=== PATIENT | male | born 1990 | race American Indian/Alaskan Native ===

== ENCOUNTER 2021-02-19 12:50 | Emergency (ER) | payer MEDICAID, SELFPAY ==
[2021-02-19 13:10] VITALS: BP 142/91; PULSE 85; RESP 15; TEMP 36.2; O2SAT 98; BMI 34.7
[2021-02-19 14:11] LABS: COVID19 -Nasal RAPID Negative (Negative)
[2021-02-19 17:38] VITALS: BP 142/85; PULSE 83; TEMP 37; O2SAT 98
--- NOTE | 2021-02-19 17:39 | ED_ITS ---
HPI - URI/Sore Throat General Chief Complaint: Upper Respiratory Symptoms Stated Complaint: COVID SYMPTOMS Time Seen by Provider: 02/19/21 17:33 Source: patient Mode of arrival: Ambulatory Limitations: no limitations History of Present Illness HPI Narrative: Patient is a 30-year-old male Fully COVID vaccinated with sore throat and headache. He states he actually feels like he might is have a sinus infection. It started yesterday. He is complaining of pain rate between his eyes. No fever chills no cough no shortness of breath. Mild sore throat. Related Data Allergies Allergy/AdvReac Type Severity Reaction Status Date / Time No Known Drug Allergies Allergy Verified 02/19/21 13:10 Review of Systems Constitutional Constitutional: Denies chills, Denies fatigue, Denies fever(s), Denies frequent falls, Denies lethargy and Denies weakness Eyes Eyes: Denies change in vision, Denies eye discharge, Denies irritation and Denies loss of vision ENT Ears, Nose, Mouth, and Throat: Denies change in voice, Denies dizziness, Denies neck pain, Reports sinus pressure, Reports sore throat and Denies throat swelling Cardiovascular Cardiovascular: Denies chest pain, Denies irregular heart rhythm, Denies lightheadedness, Denies palpitations, Denies dyspnea, Denies dyspnea on exertion and Denies orthopnea Respiratory Respiratory: Denies cough, Denies dyspnea, Denies dyspnea on exertion and Denies wheezing Gastrointestinal Gastrointestinal: Denies abdominal pain, Denies change in bowel habits, Denies diarrhea, Denies nausea and Denies vomiting Musculoskeletal Musculoskeletal: Denies neck pain and Denies numbness Integumentary/Breasts Skin/Breast: Denies pruritus, Denies erythema, Denies rash and Denies wounds Neurologic Neurologic: Denies dizziness, Denies frequent falls, Denies loss of vision, Denies numbness and Denies weakness Endocrine Endocrine: Denies fatigue, Denies flushing and Denies palpitations Hematologic/Lymphatic Hematologic/Lymphatic: Denies easy bruising Allergic/Immunologic Allergic/Immunologic: Denies urticaria, Denies throat swelling and Denies wheezing Patient History Social History Smoking Status: Unknown if ever smoked Smoking Status: Unknown if ever smoked alcohol intake frequency: holidays/special occasions only Substance Use Type: does not use Exam Initial Vital Signs Initial Vital Signs: Vital Signs Temperature 97.2 F L 02/19/21 13:10 Pulse Rate 85 02/19/21 13:10 Respiratory Rate 15 02/19/21 13:10 Blood Pressure 142/91 H 02/19/21 13:10 Pulse Oximetry 98 02/19/21 13:10 GENERAL: Alert well-appearing 30-year-old and in no acute distress. HEENT: Head atraumatic, mild frontal tenderness EOMI, pupils reactive, face symmetric, moist mucous membranes , neck supple no minute PHARYNX: No erythema no tonsillar exudate no uvula swelling no airway compromise CARDIOVASCULAR: Regular rate and rhythm without murmurs, rubs or gallops. RESPIRATORY: Breath sounds equal bilaterally, no wheezes rales or rhonchi. ABDOMEN: Soft, nontender. Normoactive bowel sounds all 4 quadrants. No guardin g or rebound. EXTREMITIES: Normal range of motion, no clubbing or edema. Neurovascularly intact NEUROLOGICAL: Alert and oriented x4.Normal gait and speech SKIN: Warm, dry, no laceration, no petechiae, no rashes or lesions. Course Orders Ordered: ED Orders 02/19/21 13:13 COVID19 -Nasal swab/Pre-Proc Stat Vital Signs Vital signs: Vital Signs - 8 hr 02/19/21 13:10 02/19/21 17:38 Temperature 97.2 F L 98.6 F Pulse Rate 85 83 Respiratory Rate 15 Blood Pressure 142/91 H 142/85 H Pulse Oximetry 98 98 MDM - URI/Sore Throat Lab Data Labs: Lab Results 02/19/21 Range/Units 13:13 SARS-CoV-2 (PCR) Negative (Negative) [facility] Narrative Medical decision making narrative: Patient overall appears well. COVID is negative. Probably upper respiratory viral infection. Discharge Plan Departure Patient Disposition: Home Clinical Impression: Upper respiratory infection Instructions: DI for Viral Upper Respiratory Infection -- Adult Activity Restrictions/Additional Instructions: *You have been diagnosed with upper respiratory infection *What to do: At this time COVID is negative. Probably another respiratory virus. Continue hydration and pain and fever control with Tylenol and *Continue to take medications as directed *Follow up with your primary care provider in 2-3 days *Return to ER if you should have increasing pain, symptoms ongoing for more than 10 days, fever more than 100.4 or any new, worsening or concerning symptoms
== END 2021-02-19 17:49 | disposition home or self-care (01) ==
PROVIDERS: Emergency Provider Emergency Medicine
DX: J06.9 Acute upper respiratory infection, unspecified (principal)
CPT/HCPCS: 87635; 99281; 99282; C9803

== ENCOUNTER 2021-06-24 23:42 | Emergency (ER) | payer MEDICAID, OTHER, SELFPAY ==
[2021-06-24 23:54] VITALS: BP 154/80; PULSE 92; RESP 18; TEMP 36.8; O2SAT 96; BMI 36.1
[2021-06-25 00:06] LABS: COVID19 -Nasal RAPID POSITIVE (Negative)
--- NOTE | 2021-06-25 00:15 | ED_ITS ---
HPI - URI/Sore Throat General Chief Complaint: Upper Respiratory Symptoms Stated Complaint: cough/lost taste/smell x3 days Time Seen by Provider: 06/25/21 00:04 Source: patient Mode of arrival: Ambulatory History of Present Illness HPI Narrative: Patient is a 30-year-old male who presents with cough body aches loss of taste smell of concern for COVID. He is fully vaccinated. No other complaints. Symptoms started 2 days ago. Related Data Allergies Allergy/AdvReac Type Severity Reaction Status Date / Time No Known Drug Allergies Allergy Verified 02/19/21 13:10 Review of Systems Review of Systems Narrative: GENERAL: + body aches, see HPI HEENT: Denies sinus pain, ear pain, sore throat, difficulty swallowing, neck pain RESPIRATORY: Denies dyspnea, cough, wheezing, hemoptysis, sputum. CARDIOVASCULAR: Denies chest pain, palpitations, orthopnea, edema GASTROINTESTINAL: Denies nausea, vomiting, abdominal pain, diarrhea, constipation, melena. : Denies dysuria, frequency, incontinence, hematuria, urinary retention, flank pain. MUSCULOSKELETAL: Denies weakness, joint pain, or bony pain SKIN: No rash, no erythema, no pruritus NEUROLOGIC: Denies weakness, dizziness, headache, numbness, change in speech, confusion PSYCHIATRIC: No concerning psychosocial issues. 12 point review of systems is negative except for those stated above and HPI Patient History Social History Smoking Status: Unknown if ever smoked Smoking Status: Unknown if ever smoked alcohol intake frequency: holidays/special occasions only Substance Use Type: does not use Exam Initial Vital Signs Initial Vital Signs: Vital Signs Temperature 98.3 F 06/24/21 23:54 Pulse Rate 92 H 06/24/21 23:54 Respiratory Rate 18 06/24/21 23:54 Blood Pressure 154/80 H 06/24/21 23:54 Pulse Oximetry 96 06/24/21 23:54 Course Orders Ordered: ED Orders 06/24/21 23:53 COVID19 -Nasal swab/Pre-Proc Stat Vital Signs Vital signs: Vital Signs - 8 hr 06/24/21 23:54 Temperature 98.3 F Pulse Rate 92 H Respiratory Rate 18 Blood Pressure 154/80 H Pulse Oximetry 96 MDM - URI/Sore Throat Lab Data Labs: Lab Results 06/24/21 Range/Units 23:53 SARS-CoV-2 (PCR) Positive H (Negative) Discharge Plan Departure Patient Disposition: Home Clinical Impression: COVID-19 Instructions: DI for COVID-19 (Suspected or Confirmed ) Activity Restrictions/Additional Instructions: * if you have not yet been vaccinated is still recommended and encouraged that you do so once your infection has passed At home: -Monitor oxygen with pulse oximeter. If less than 90% for more than 1 hour please return to emergency department -I recommend lying on stomach for side rather than back, it has been proven to increase oxygen levels -Wash hands frequently. -Stay isolated at home please follow the isolation instructions below. -Increase fluid intake. -you may take Tylenol as directed if needed for pain or fever Emergency warning signs for COVID-19: - Difficulty breathing or shortness of breath, oxygen less than 90% - Persistent pain or pressure in the chest - New confusion or inability to arouse - Bluish lips or face CDC Guidelines for home isolation: - Stay away from others - Limit contact with pets and animals: If you must care for a pet, wash your hands before and after interacting with them - Wear a mask while in public all places - Cover your mouth and nose with a tissue when you cough or sneeze. Dispose of tissues in a lined trash can and wash your hands immediately with soap and water for at least 20 seconds. If soap and water are not available, clean hands with alcohol-based hand wool hat forming machine tender that contains at least 60% alcohol. - Clean your hands often with soap and water for at least 20 seconds - Avoid touching your eyes, nose and mouth with unwashed hands - Do not share dishes, drinking glasses, cups, eating utensils, towels, or bedding with other people in your home. After using these items, wash them thoroughly with soap and water or put in the building manager. - Clean high-touch surfaces in your isolation area (?sick room? and bathroom) every day; let a caregiver clean and disinfect high-touch surfaces in other areas of the home. Clean the area or item with soap and water or another detergent if it is dirty. Then, use a household disinfectant.
== END 2021-06-25 00:20 | disposition home or self-care (01) ==
PROVIDERS: Emergency Provider Emergency Medicine
DX: U07.1 COVID-19 (principal)
CPT/HCPCS: 87635; 99281; 99282; C9803

== ENCOUNTER 2021-12-21 07:02 | Emergency (ER) | payer MEDICAID, OTHER, SELFPAY ==
[2021-12-21 07:24] VITALS: BP 145/83; PULSE 98; RESP 18; TEMP 37.1; O2SAT 98; BMI 35.4
--- NOTE | 2021-12-21 07:30 | ED.URI ---
HPI - URI/Sore Throat General Chief Complaint: Upper Respiratory Symptoms Stated Complaint: cough congestion Time Seen by Provider: 12/21/21 07:29 Source: patient and family Mode of arrival: Ambulatory Limitations: no limitations History of Present Illness HPI Narrative: The patient has been ill for 4 days with rhinorrhea, ear pressure, sore throat. He is nonproductive cough, more prevent in the morning that throughout the day. He was positive for COVID-19 last year. He has no chronic sinus problems. He has no asthma or allergies. He is a nonsmoker. He has not been exposed to others with similar complaints. With the sore throat he has no difficulty swallowing. He is hydrating well. He is not having GI upset, his appetite is normal. He had asthma as a child, no issues in recent years. He is on no regular prescribed medications. Related Data Allergies Allergy/AdvReac Type Severity Reaction Status Date / Time No Known Drug Allergies Allergy Verified 02/19/21 13:10 Review of Systems Constitutional Constitutional: Reports body ache(s), Denies chills, Reports fatigue, Denies fever(s), Reports headache(s) and Denies night sweats Eyes Eyes: Denies blurry vision and Denies change in vision ENT Ears, Nose, Mouth, and Throat: Denies vertigo, Denies dizziness, Reports headache(s), Denies sinus pain, Denies sinus pressure and Denies sore throat Cardiovascular Cardiovascular: Denies chest pain, Denies syncope, Denies rapid heart rate, Denies pedal edema and Denies dyspnea Respiratory Respiratory: Denies chest congestion, Denies cough and Denies dyspnea Gastrointestinal Gastrointestinal: Denies abdominal pain, Denies change in stool character, Denies nausea and Denies vomiting Genitourinary Genitourinary: Denies dysuria Musculoskeletal Musculoskeletal: Reports arthralgias, Denies back pain and Reports myalgias Integumentary/Breasts Skin/Breast: Denies rash Neurologic Neurologic: Denies confusion, Denies vertigo, Denies dizziness, Denies syncope and Reports headache(s) Psychiatric Psychiatric: Denies confusion Endocrine Endocrine: Reports fatigue Hematologic/Lymphatic On Anticoagulants: No Patient History Medical History (Updated 12/21/21 @ 08:33 by Felipe Neves MD) No significant past medical history Surgical History (Updated 12/21/21 @ 08:33 by Felipe Neves MD) No significant past surgical history Social History Smoking Status: Unknown if ever smoked Smoking Status: Never smoker alcohol intake frequency: holidays/special occasions only Substance Use Type: does not use Exam Initial Vital Signs Initial Vital Signs: Vital Signs Temperature 98.7 F 12/21/21 07:24 Pulse Rate 98 H 12/21/21 07:24 Respiratory Rate 18 12/21/21 07:24 Blood Pressure 145/83 H 12/21/21 07:24 Pulse Oximetry 98 12/21/21 07:24 Const General: cooperative, comfortable, well developed and well groomed HENMT Head: normal to inspection, normocephalic and atraumatic Ears: TM's normal bilaterally Nose: nasal discharge Face and sinus: sinuses nontender Mouth: other (Or pharyngeal erythema. Postnasal drainage. Tonsils are normal.) Throat: posterior oropharynx normal Eyes Pupils: PERRL EOM: EOM intact bilaterally Neck Neck: normal visual inspection, full ROM and No tender Resp Auscultation: clear to auscultation bilaterally Cardio Rate: regular rate Rhythm: regular rhythm Heart Sounds: S1 normal, S2 normal, no click, no gallops and no murmurs GI Inspection: normal to inspection Palpation: soft and No tender Back/Spine/Pelvis Back: normal to inspection, back tenderness and No CVA tenderness Cervical Spine: normal cervical lordosis Skin General: no rashes or lesions noted Neuro General: patient alert, patient awake, patient oriented x3 and no focal motor deficits Extrem General: normal to inspection, full ROM and no pedal edema Psych Mental Status: mental status grossly normal Course Orders Ordered: ED Orders 12/21/21 07:29 Covid-19 + FLU A/B by PCR Stat Vital Signs Vital signs: Vital Signs - 8 hr 12/21/21 07:24 Temperature 98.7 F Pulse Rate 98 H Respiratory Rate 18 Blood Pressure 145/83 H Pulse Oximetry 98 MDM - URI/Sore Throat Lab Data Labs: Lab Results 12/21/21 Range/Units 07:25 SARS-CoV-2 (PCR) Negative (Negative) Influenza A (RT-PCR) Flu a negative (NEGATIVE) Influenza B (RT-PCR) Flu b negative (NEGATIVE) Discharge Plan Departure Patient Disposition: Home Clinical Impression: Upper respiratory infection Instructions: Common Cold Activity Restrictions/Additional Instructions: Rest. Be sure you are well hydrated at all times. Tylenol 2 tabs every 4 hours for body aches, sore throat or fever Robitussin 2 tsp every 3-4 hours as needed for cough. Anticipate symptoms resolve over the next 3 4 days. If you develop high fevers, or worsening symptoms return to the ER. Stand Alone Forms: Work Release Note
[2021-12-21 08:12] LABS: Influenza A - CEPHEID Flu A NEGATIVE (NEGATIVE); Influenza B - CEPHEID Flu B NEGATIVE (NEGATIVE)
[2021-12-21 08:15] LABS: COVID-19 CEPHEID PCR (VTM/NP) Negative (Negative)
[2021-12-21 08:31] VITALS: BP 133/71; PULSE 92; RESP 18; TEMP 37; O2SAT 97
== END 2021-12-21 08:31 | disposition home or self-care (01) ==
PROVIDERS: Emergency Provider Emergency Medicine
DX: J06.9 Acute upper respiratory infection, unspecified (principal); Z20.822 Contact with and (suspected) exposure to COVID-19
CPT/HCPCS: 87635; 99281; 99282; C9803

== ENCOUNTER 2023-06-28 08:27 | Emergency (ER) | payer OTHER, SELFPAY ==
[2023-06-28] VITALS (10 sets, daily range): BP systolic 147–190; BP diastolic 85–110; PULSE 70–83; RESP 15–23; TEMP 36.8–37.2; O2SAT 95–100; BMI 35.4
[2023-06-28] MEDS: ONDANSETRON 4 MG/2 ML INJ IV (08:45)
[2023-06-28] MEDS: KETOROLAC 30 MG/ML VIAL 15 MG IV (08:46)
[2023-06-28 08:47] LABS: Add Manual Diff / Slide Review NO; Basophils Absolute Auto 100 /uL (0-100); Basophils Percent Auto 0.8 % (0-2); Eosinophils Absolute Auto 200 /uL (0-450); Eosinophils Percent Auto 1.6 % (2-4); Hematocrit 43.3 % (41-53); Hemoglobin 14.7 g/dL (13.5-17.5); Lymphocytes Absolute Auto 3800 /uL (1100-4500); Lymphocytes Percent Auto 33.2 % (25-40); Mean Corpuscular HGB Conc 33.9 % (30-36); Mean Corpuscular Hemoglobin 28.2 PG (26-34); Mean Corpuscular Volume 83.2 fL (80-100); Monocytes Absolute Auto 900 /uL (0-900); Neutrophils Absolute Auto 6400 /uL (1500-7000); Neutrophils Percent Auto 56.4 % (50-75); Platelet Count 339 X10^3/uL (150-400); Red Blood Cell Count 5.21 X10^6/uL (4.5-5.9); Red Cell Distribution Width 13.7 % (11.6-14.8); White Blood Cell Count 11.4 X10^3/uL (4.5-11.0)
--- NOTE | 2023-06-28 08:47 | ED_ITS ---
HPI - Abdominal Pain General Chief Complaint: Abdominal Pain Stated Complaint: cramping pain ribs/back Time Seen by Provider: 06/28/23 08:39 Source: patient Mode of arrival: Ambulatory Limitations: no limitations History of Present Illness HPI narrative: 32-year-old male with no reported medical issues who comes in with complaint of left flank pain wrapping around to the front. He states he would about 5 minute episode yesterday that improved and then today had recurrence which has not. Patient states quite painful unable to find a position of comfort. He denies any fevers or chills. No diaphoresis. Denies chest pain or shortness of breath. He feels nauseated but vomiting. States he has been stooling regularly with no black or bloody stools no diarrhea constipation. A sensation like he needs to urinate but he states nothing really comes out. No dysuria, urgency or frequency otherwise. Patient has not had similar symptoms in the past. He denies any daily medications. No prior surgeries. States he has not allergy to shellfish but tolerates iodine without issue. Denies tobacco, occasional alcohol, no recreational drugs. He is accompanied by his . Related Data Previous Rx's Medication Instructions Recorded oxycodone 5 mg tablet 5 mg PO Q6H PRN pain #14 tabs 06/28/23 tamsulosin 0.4 mg capsule (Flomax) 0.4 mg PO DAILY #7 caps 06/28/23 Allergies Allergy/AdvReac Type Severity Reaction Status Date / Time shellfish derived Allergy Verified 06/28/23 08:45 Review of Systems Review of Systems ROS Unobtainable: All systems reviewed & are unremarkable except as noted in HPI and below Patient History Medical History No significant past medical history Surgical History No significant past surgical history Social History Smoking Status: Never smoker Smoking Status: Never smoker alcohol intake frequency: holidays/special occasions only Substance Use Type: does not use Exam Narrative Exam Narrative: GENERAL: Alert and oriented x three, obese male in moderate distress. HEENT: Head normocephalic, atraumatic, EOMI, pupils reactive, face symmetric, moist mucous membranes NECK: Supple, full range of motion CARDIOVASCULAR: Regular rate and rhythm without murmurs, rubs or gallops. RESPIRATORY: Breath sounds equal bilaterally, no wheezes rales or rhonchi. ABDOMEN: Soft, mild left lower quadrant tenderness. Nondistended. Normoactive bowel sounds all 4 quadrants. No guarding or rebound, rigidity, no mass : Positive for left flank CVA tenderness, no right flank EXTREMITIES: Normal range of motion, no clubbing or edema. Neurovascularly intact NEUROLOGICAL: Cranial nerves II through XII grossly intact. Moving all extremities SKIN: Warm, dry, no petechiae, no rashes or lesions. Initial Vital Signs Initial Vital Signs: Vital Signs Temperature 98.2 F 06/28/23 08:30 Pulse Rate 73 06/28/23 08:30 Respiratory Rate 22 06/28/23 08:30 Blood Pressure 190/110 H 06/28/23 08:30 Pulse Oximetry 97 06/28/23 08:30 Oxygen Delivery Method Room Air 06/28/23 08:30 Course Orders Ordered: Discontinued Medications Ketorolac Tromethamine (Ketorolac 30 Mg/Ml Vial) 15 mg IV NOW ONE Stop: 06/28/23 08:43 Last Admin: 06/28/23 08:46 Dose: 15 mg Documented By: KHANG Morphine Sulfate (Morphine 4 Mg/Ml Inj) 4 mg IV NOW ONE Stop: 06/28/23 10:17 Last Admin: 06/28/23 10:22 Dose: 4 mg Documented By: MARII Ondansetron HCl (Ondansetron 4 Mg/2 Ml Inj) 4 mg IV NOW ONE Stop: 06/28/23 08:43 Last Admin: 06/28/23 08:45 Dose: 4 mg Documented By: KHANG Vital Signs Vital signs: Vital Signs - 8 hr 06/28/23 08:30 06/28/23 08:36 06/28/23 08:38 Temperature 98.2 F Pulse Rate 73 77 Respiratory Rate 22 23 Blood Pressure 190/110 H 170/104 H Pulse Oximetry 97 100 Oxygen Delivery Method Room Air 06/28/23 09:04 06/28/23 09:05 06/28/23 09:05 Temperature Pulse Rate 73 75 Respiratory Rate 21 Blood Pressure 172/103 H Pulse Oximetry 97 95 Oxygen Delivery Method MDM - Abdominal Pain Lab Data 06/28/23 08:40 06/28/23 08:40 Labs: Lab Results 06/28/23 06/28/23 Range/Units 08:40 09:18 WBC 11.4 H (4.5-11.0) X10^3/uL RBC 5.21 (4.5-5.9) X10^6/uL Hgb 14.7 (13.5-17.5) g/dL Hct 43.3 (41-53) % MCV 83.2 (80-100) fL MCH 28.2 (26-34) PG MCHC 33.9 (30-36) % RDW 13.7 (11.6-14.8) % Plt Count 339 (150-400) X10^3/uL Neut % (Auto) 56.4 (50-75) % Lymph % (Auto) 33.2 (25-40) % [place] % (Auto) 8.0 (3-14) % Eos % (Auto) 1.6 L (2-4) % Baso % (Auto) 0.8 (0-2) % Neut # (Auto) 6400 (3768-8742) /uL Lymph # (Auto) 3800 (7064-8002) /uL [place] # (Auto) 900 (0-900) /uL Eos # (Auto) 200 (0-450) /uL Baso # (Auto) 100 (0-100) /uL Sodium 139 (137-145) mmol/L Potassium 3.9 (3.4-5.1) mmol/L Chloride 108 H (98-107) mmol/L Carbon Dioxide 23 (22-32) mmol/L BUN 9 (9-20) mg/dL Creatinine 0.82 (0.66-1.25) mg/dL Estimated GFR > 60 (>60) mL/min BUN/Creatinine Ratio 11.0 (6-22) Glucose 133 H (70-100) mg/dL Calcium 9.4 (8.4-10.2) mg/dL Total Bilirubin 0.7 (0.2-1.3) mg/dL AST 41 (17-59) IU/L ALT 53 H (<50) IU/L Alkaline Phosphatase 152 H (38-126) U/L Total Protein 8.1 (6.3-8.2) g/dL Albumin 4.3 (3.5-5.0) g/dL Globulin 3.8 (1.7-4.1) g/dL Albumin/Globulin Ratio 1.1 (1.0-2.8) Lipase 85 (23-300) U/L Urine Color Straw Urine Appearance Clear Urine pH 6.5 (4.5-8.0) Ur Specific [place] 1.020 (1.000-1.035) Urine Protein Negative (Negative) Urine Glucose (UA) Negative (Negative) g/dL Urine Ketones Negative (NEGATIVE) Urine Occult Blood 2+ H (Negative) Urine Nitrate Negative (Negative) Urine Bilirubin Negative (NEGATIVE) Urine Urobilinogen Normal (0.2) E.U./dL Ur Leukocyte Esterase Negative (NEGATIVE) Urine RBC 5-10/hpf H (0-5/HPF) Urine WBC None seen (0-5/HPF) Ur Squamous Epith Cells 0-1 /hpf (0-5/HPF) Urine Bacteria None seen (None) Ur Culture Indicated? Cult not indicated Imaging Data CT scan - abdomen/pelvis: Radiologist's Impression: [place] [address] CT Scan Report Signed Patient: Pina Berger MR#: [id number] : 1990 Acct:[id number] Age/Sex: 32 / M Date of Service: 06/28/23 Loc: ED Accession Number: [id number] Procedure: CT kidney ureter bladder (KUB) Ordering Provider: Arlet Dillard D.O. PROCEDURE: CT KIDNEY URETER BLADDER (KUB) INDICATIONS: Left flank pain now radiates to front, no prior stones TECHNIQUE: Axial sections were acquired from the lung bases to the pubic symphysis. Coronal and sagittal reformats were performed. For radiation dose reduction, the following was used: automated exposure control, adjustment of mA and/or kV according to patient size. COMPARISON: None. FINDINGS: Image quality: Excellent. Lung bases: Unremarkable. Heart: No significant findings. URINARY: Right Kidney and ureter: No stones or hydronephrosis. No hydroureter. Left Kidney and ureter: There is a 2 mm stone at the right UVJ. Trace hydronephrosis. No other stones. Bladder: Normal wall thickness. No stones. ABDOMEN: Liver: No contour-deforming solid mass. Mild hepatic steatosis. Gallbladder: No radiopaque gallstones or wall thickening. Biliary ducts: No biliary dilation. Pancreas: No ductal dilation. Spleen: Size is within normal limits. Adrenal Glands: No adrenal nodules. Stomach and Bowel: Normal colonic caliber, without significant wall thickening. Peritoneum: No abnormal intraperitoneal fluid. No free air. Ventral Wall: No hernia. Abdominal Nodes: No enlarged retroperitoneal or mesenteric lymph nodes. Vessels: Aorta and inferior vena cava are normal in size. PELVIS: Pelvic Organs: Unremarkable. Pelvic Nodes: Unremarkable. Miscellaneous: No inguinal hernias are seen. Bones: Unremarkable. IMPRESSION: 1. There is a 2 mm stone at the left UVJ causing trace left hydronephrosis. No other renal calculi. Dictated by: Bryson Barboza M.D. on 06/28/2023 at 9:31 Approved by: Bryson Barboza M.D. on 06/28/2023 at 9:38 MDM Narrative Medical decision making narrative: 32-year-old male with complaint of sudden onset left flank pain for several minutes yesterday and then recurrence today sensation that he needs to urinate does not have any output. Patient has not had a history kidney stones but does appear clinically to have when he is somewhat tender though on his left flank and abdomen. He is hypertensive here initially but afebrile with normal oxygenation, respiratory rate and pulse. Plan for labs, urinalysis, CT KUB and pain medication and antinausea medication. On recheck patient still has some pain but feels much better defers anything additional for pain management. CT shows a 2 mm stone in the left UVJ with trace left hydro, no other stones otherwise mild hepatic steatosis but no other acute changes on imaging. Labs show mild leukocytosis normal hemoglobin platelets eosinophils are low at 1.6. Patient's CMP shows a chloride of 108 glucose of 133 ALT of 53 alk-phos of 152 with normal bilirubin, normal AST and lipase. No other acute changes noted. Patient feels improved still but states pain is starting to return. Blood pressure has improved moderately. Patient and I discussed plan for Tylenol/ibuprofen with oxycodone for breakthrough pain. Flomax. Referral for Urology as needed. Discharge Plan Departure Patient Disposition: Home Clinical Impression: Kidney stone on left side Instructions: DI for Kidney Stones Activity Restrictions/Additional Instructions: Follow-up with your physician for recheck. If symptoms are persisting but pain is controlled follow up with Urology, contacts included below. Call to set up an appointment. Take Flomax once daily until gone. You may take Tylenol up to a 1000 mg every 6 hours and/or ibuprofen up to 600 mg every 6 hours. If in adequate for pain take narcotic pain medication as prescribed. This medication can make you sleepy do not drive, perform hazardous activities or make any major decisions while taking it. This medication will make you constipated please take a stool softener once to twice daily until stools are soft and regular. Prescription sent to [facility] Please return for fevers, new or worsening abdominal back or flank pain, persistent vomiting, black or bloody stools, inability urinate or other new or concerning changes. Prescriptions: New tamsulosin [Flomax] 0.4 mg capsule 0.4 mg PO DAILY Qty: 7 0RF oxycodone 5 mg tablet 5 mg PO Q6H PRN (Reason: pain) Qty: 14 0RF Rx Instructions: 1-2 tablets every 6 hours as needed for pain. Referrals: Praful Lopez MD [Physician] - Stand Alone Forms: Patient Portal/API
[2023-06-28 08:58] LABS: Alanine Aminotransferase 53 IU/L (<50); Albumin 4.3 g/dL (3.5-5.0); Albumin Globulin Ratio 1.1 (1.0-2.8); Alkaline Phosphatase 152 U/L (38-126); Aspartate Aminotransferase 41 IU/L (17-59); Bilirubin Total 0.7 mg/dL (0.2-1.3); Blood Urea Nitrogen 9 mg/dL (9-20); Calcium 9.4 mg/dL (8.4-10.2); Carbon Dioxide 23 mmol/L (22-32); Chloride 108 mmol/L (98-107); Estimated Glomerular Filt Rate > 60 mL/min (>60); Globulin 3.8 g/dL (1.7-4.1); Glucose 133 mg/dL (70-100); HEMOLYSIS < 15 (0-50); Lipase 85 U/L (23-300); Potassium 3.9 mmol/L (3.4-5.1); Sodium 139 mmol/L (137-145); Total Protein 8.1 g/dL (6.3-8.2)
[2023-06-28 09:37] LABS: Appearance Urine UA Clear; Bilirubin Urine UA Negative (NEGATIVE); Color Urine UA Straw; Glucose Urine UA NEGATIVE (Negative); Ketones Urine UA NEGATIVE (NEGATIVE); Leukocyte Esterase Urine UA NEGATIVE (NEGATIVE); Nitrite Urine UA NEGATIVE (Negative); Occult Blood Urine UA 2+ (Negative); Protein Urine UA Negative (Negative); Urobilinogen Urine UA Normal E.U./dL (0.2); pH Urine UA 6.5 (4.5-8.0)
[2023-06-28 09:43] LABS: Bacteria Urine None Seen; Culture Indicated Urine Cult Not Indicated; RBC Urine 5-10/HPF (0-5/HPF); Squamous Epithelial Cell Urine 0-1 /HPF (0-5/HPF); WBC Urine None Seen (0-5/HPF)
[2023-06-28] MEDS: MORPHINE 4 MG/ML INJ IV (10:22)
== END 2023-06-28 11:12 | disposition home or self-care (01) ==
PROVIDERS: Emergency Provider Emergency Medicine
DX: N20.0 Calculus of kidney (principal)
CPT/HCPCS: 36415; 74176; 80053; 81001; 83690; 85025; 96374; 96375; 99284; J1885; J2270; J2405